=== PATIENT | male | born 1975 | race African-American/Black ===

== ENCOUNTER 2020-12-12 05:05 | Emergency (ER) | payer OTHER, MEDICAID ==
[~2020-12-12] VITALS: Ht 182.9 cm; Wt 90.0 kg
[2020-12-12 05:52] LABS: BASOPHILS % 0.8 % (0.0-2.0); EOSINOPHILS % 2.8 % (0.0-5.0); HEMATOCRIT. 43.5 % (42.0-52.0); HEMOGLOBIN. 15.1 g/dL (14.0-18.0); LYMPHOCYTES % 36.7 % (20.0-50.0); MEAN CORPUSCULAR HEMOGLOBIN 33.5 pg (28.0-32.0); MEAN CORPUSCULAR VOLUME 96.3 fL (80.0-94.0); MEAN PLATELET VOLUME 6.8 fl (7.4-10.4); MONOCYTES % 3.3 % (2.0-8.0); NEUTROPHILS % 56.4 % (40.0-76.0); PLATELET 216 x1000/uL (130-400); RED BLOOD CELL COUNT 4.51 mill/uL (4.7-6.1); RED CELL DISTRIBUTION WIDTH 12.8 % (11.6-14.6)
[2020-12-12 05:58] LABS: CHLORIDE 110 mEq/L (98-107)
[2020-12-12 06:29] VITALS: BP 128/78
== END 2020-12-12 06:33 ==
LOC: ER 05:05
DX: E11.65 Type 2 diabetes mellitus with hyperglycemia (principal); I49.9 Cardiac arrhythmia, unspecified
CPT/HCPCS: 36415; 80053; 82962; 85025; 93005; 99284